=== PATIENT | female | born 1980 | race Caucasian/White ===

== ENCOUNTER 2016-08-24 09:21 | Emergency (ER) | payer BC ==
[~2016-08-24] VITALS: Ht 182.9 cm; Wt 120.2 kg
[2016-08-24 09:23] VITALS: BP 131/63
--- NOTE | 2016-08-24 09:41 | PHYS DOC ---
Past Medical History Past Medical History: Other Additional Past Medical Histor: BACK PAIN, headaches Past Surgical History: , Other Additional Past Surgical Histo: DISCECTOMY AT AGE 25 Alcohol Use: None Drug Use: None Adult General Chief Complaint Chief Complaint: FOOT INJURY PAIN [facility] HPI Patient is a 36 year old female presents emergency department stating that she' s had back surgery in the past in which she has numbness and tingling in her feet. Patient states approximately one week ago she believes that she stepped on something in her left foot. She states that she believes there is still foreign body left in the foot area. She states she has increased pain and discomfort when she is ambulating. She states she does take tramadol in which is helped some of the pain although she still continues to have pain when she ambulates. Patient states that she normally has tingling in her feet. Patient is able to move the toes. Full range of motion of the ankle. Review of Systems Review of Systems Constitutional: Denies fever or chills [] Eyes: Denies change in visual acuity, redness, or eye pain [] HENT: Denies nasal congestion or sore throat [] Respiratory: Denies cough or shortness of breath [] Cardiovascular: No additional information not addressed in HPI [] GI: Denies abdominal pain, nausea, vomiting, bloody stools or diarrhea [] : Denies dysuria or hematuria [] Musculoskeletal: Denies back pain or joint pain [] Integument: Denies rash or skin lesions questionable foreign body in the left foot. The heel area Neurologic: Denies headache, focal weakness or sensory changes [] Endocrine: Denies polyuria or polydipsia [] Allergies Allergies Allergies Coded Allergies Type Severity Reaction Last Updated Verified No Known Drug Allergies 08/18/14 No Physical Exam Physical Exam Constitutional: Well developed, well nourished, no acute distress, non-toxic appearance. [] HENT: Normocephalic, atraumatic, bilateral external ears normal, oropharynx moist, no oral exudates, nose normal. [] Eyes: PERRLA, EOMI, conjunctiva normal, no discharge. [] Neck: Normal range of motion, no tenderness, supple, no stridor. [] Cardiovascular:Heart rate regular rhythm Lungs & Thorax: No respiratory distress noted Skin: Warm, dry, no erythema, no rash. Left heel area has a spot that appears to be black in which patient states is tender. The area does not appear to have anything sharp or anything protruding from the site. No redness warmth tenderness or any drainage coming from the site. Back: No tenderness, no CVA tenderness. [] Extremities: No tenderness, no cyanosis, no clubbing, ROM intact, no edema. [] Neurologic: Alert and oriented X 3, normal motor function, normal sensory function, no focal deficits noted. [] Psychologic: Affect normal, judgement normal, mood normal. [] Current Patient Data Vital Signs Vital Signs Date Time Temp Pulse Resp B/P (MAP) Pulse Ox O2 Delivery O2 Flow Rate FiO2 08/24/16 09:23 97.9 78 16 96 Room Air 97.9 EKG EKG [] Radiology/Procedures Radiology/Procedures [] Course & Med Decision Making Course & Med Decision Making Pertinent Labs and Imaging studies reviewed. (See chart for details) X-rays were positive for foreign body noted into the heel area per Dr Loja. However the area did appear to be slightly deep. Spoke with Dr. Loja in regards to setting this patient to podiatry he is in agreement's with the patient should follow-up with mat roller for evaluation and possible removal of foreign body. Patient was provided with this information. She is also recommended to obtain the corn type adhesive that you can placed over the area to condition around the foreign object. Patient was encouraged to use Tylenol or ibuprofen for pain and discomfort she does have a prescription of tramadol in which she may also take. Patient will be discharged home in stable condition signs symptoms to return back to the emergency department as been provided. Patient agrees with discharge instructions treatment regimens and follow-up recommendations. [] Dragon Disclaimer Dragon Disclaimer This electronic medical record was generated, in whole or in part, using a voice recognition dictation system. Departure Departure Impression: Primary Impression: Foreign body (FB) in soft tissue Disposition: 01 HOME, SELF-CARE Condition: STABLE Referrals: HAILE STOVER MD (PCP) LISBET COWART DPM, RADMILA DPM Patient Instructions: Foreign Body-Brief Additional Instructions: As you were informed to foreign body was noted to be in the heel area. You may obtain: Patient's that you may place over the area to help with decreasing the pain and discomfort when walking. Continue with her tramadol at home in which you have for pain and discomfort. It is advisable since you have neuropathy in your feet that you wear socks or shoes at all times. This would help prevent foreign body in the soft tissue area of your feet Follow-up with podiatry for evaluation to have the foreign body removed. Return back to emergency prior signs symptoms of become worse. ANDRE JACOBS APRN Aug 24, 2016 09:41
--- NOTE | 2016-08-24 10:28 | RAD ---
Examination: 3 views of the left foot History: History of stepped on something one week back now has pain. Comparison: None available Findings: The alignment of the tarsal bones grossly appears unremarkable. The alignment of the tarsal metatarsal joints, tarsophalangeal joints, interphalangeal grossly appears unremarkable. No acute fracture identified. There is a tiny speck of radiodensity identified in the plantar aspect of the hindfoot inferior to the calcaneus. Impression: 1. Tiny speck of radiodensity identified in the plantar aspect of the hindfoot inferior to the calcaneus, best seen on the lateral and oblique views could be a small foreign body. Correlate clinically.
== END 2016-08-24 10:14 | disposition home or self-care (01) ==
LOC: ER 09:21
DX: S90.852A Superficial foreign body, left foot, initial encounter (principal); W45.8XXA Other foreign body or object entering through skin, initial encounter; Y93.89 Activity, other specified; Y92.89 Other specified places as the place of occurrence of the external cause; Y99.8 Other external cause status
CPT/HCPCS: 73630; 99284

== ENCOUNTER 2017-11-15 20:49 | Emergency (ER) | payer BC ==
[~2017-11-15] VITALS: Ht 182.9 cm; Wt 113.4 kg
[2017-11-15 20:49] VITALS: BP 123/75
[2017-11-15] MEDS ORDERED: HYDR-2758 PO (22:11)
[2017-11-15] MEDS ORDERED: NAPR-514 PO (22:11)
--- NOTE | 2017-11-15 22:12 | PHYS DOC ---
Past Medical History Past Medical History: Depression, GERD, Other Additional Past Medical Histor: BACK PAIN, headaches Past Surgical History: , Other Additional Past Surgical Histo: DISCECTOMY AT AGE 25 Alcohol Use: None Drug Use: None Adult General Chief Complaint Chief Complaint: FOOT INJURY PAIN HPI HPI Patient is a 37 year old Female who presents to the emergency department today with complaints of right foot pain since 3 o'clock this morning. She describes the pain as sharp, shooting pain to the arch of her right foot. She denies any new injury. She reports a history of neuropathy in her foot after back surgery several years ago. She does not take anything for all management of her neuropathy. She reprots taking tramadol at home with no relief of her symptoms. Currently she reports the pain is a 10 out of 10 on the pain scale. The pain is exacerbated with weight bearing and movement. Review of Systems Review of Systems Constitutional: Denies fever or chills [] Musculoskeletal: Denies back pain, reports pain in R foot with no known injury, denies any swelling or erythema of foot Integument: Denies rash or skin lesions [] Neurologic: Denies focal weakness or sensory changes [] All other systems were reviewed and found to be within normal limits, except as documented in this note. Current Medications Current Medications Current Medications Medications (Trade) Dose Ordered Sig/[facility] Start Time Stop Time Status Last Admin Dose Admin Acetaminophen/ Hydrocodone Bitart (Lortab 5/325) 1 tab 1X ONCE 11/15/17 22:30 11/15/17 22:30 DC 11/15/17 22:06 1 TAB Naproxen (Naprosyn) 500 mg 1X ONCE 11/15/17 22:30 11/15/17 22:30 DC 11/15/17 22:06 500 MG Allergies Allergies Allergies Coded Allergies Type Severity Reaction Last Updated Verified No Known Drug Allergies 08/18/14 No Physical Exam Physical Exam Constitutional: Well developed, well nourished, no acute distress, non-toxic appearance, obese. [] HENT: Normocephalic, atraumatic, bilateral external ears normal, nose normal. [] Eyes: conjunctiva normal, no discharge. [] Skin: Warm, dry, no erythema, no rash. [] Extremities: No cyanosis, no clubbing, ROM intact, no edema; no edema, erythema , or bruising noted to R foot, R foot posterior tibial and pedal pulses 2+] Neurologic: Alert and oriented X 3, normal motor function, normal sensory function, no focal deficits noted. [] Psychologic: Affect normal, judgement normal, mood normal. [] Current Patient Data Vital Signs Vital Signs Date Time Temp Pulse Resp B/P (MAP) Pulse Ox O2 Delivery O2 Flow Rate FiO2 11/15/17 22:06 Room Air 11/15/17 20:49 97.7 76 16 123/75 (91) 98 97.7 EKG EKG [] Radiology/Procedures Radiology/Procedures [] Course & Med Decision Making Course & Med Decision Making Pertinent Labs and Imaging studies reviewed. (See chart for details) Dx R foot pain, neuropathy No x-ray ordered as there was no injury or deformity. Physical exam not concerning for fracture, or infection. Pt was given one 500 mg naproxen and one hydrocodone 5/325 mg tablet in the department for pain relief. Rx for naproxen and hydrocodone written. PT was advised to follow up with PCP for further management of her chronic neuropathy and pain. Pt verbalized an understanding of discharge, medications, follow-up, home care, and return to ED precautions. Pt was in agreement with POC. Staff Physician Addendum: I was working in the ER during the course of this patient's visit. I was available for consultation as needed, but I was not directly involved in the care of this patient. [] Dragon Disclaimer Dragon Disclaimer This electronic medical record was generated, in whole or in part, using a voice recognition dictation system. Departure Departure Impression: Primary Impression: Neuropathy Additional Impression: Foot pain, right Disposition: 01 HOME, SELF-CARE Condition: STABLE Referrals: UNKNOWN PCP NAME (PCP) Patient Instructions: Pain, Neuropathic-Brief Additional Instructions: FILL PRESCRIPTIONS AND USE DIRECTED. FOLLOW UP WITH YOUR PCP FOR FURTHER MANAGEMENT OF YOUR CHRONIC NEUROPATHY. RECOMMEND APPLICATION OF ICE NEEDED FOR RELIEF OF PAIN. Scripts Hydrocodone Bit/Acetaminophen (HYDROCODONE-APAP 5-325 ) 1 Each Tablet 1 TAB PO PRN Q6HRS PRN for PAIN for 3 Days, #12 TAB 0 Refills Prov: TRINA THORPE APRN 11/15/17 Naproxen (NAPROXEN) 500 Mg Tablet 500 MG PO BID for 10 Days, #20 TAB 0 Refills Prov: TRINA THORPE APRN 11/15/17 Problem Qualifiers TRINA THORPE APRN Nov 15, 2017 22:12 ANNIE LEYVA MD Nov 18, 2017 06:15
[2017-11-15] MEDS ORDERED: NAPROXEN 500 MG TABLET PO ONE (22:30)
[2017-11-15] MEDS ORDERED: HYDROcodone/APAP 5/325MG 1 TAB TABLET PO ONE (22:30)
== END 2017-11-15 22:30 | disposition home or self-care (01) ==
LOC: ER 20:49
DX: G62.89 Other specified polyneuropathies (principal); M79.671 Pain in right foot; F32.9 Major depressive disorder, single episode, unspecified; K21.9 Gastro-esophageal reflux disease without esophagitis; Z98.890 Other specified postprocedural states
CPT/HCPCS: 99283

== ENCOUNTER 2018-09-28 06:23 | Emergency (ER) | payer BC ==
[~2018-09-28] VITALS: Ht 182.9 cm; Wt 113.4 kg
[~2018-09-28 06:23] MED LIST: HYDR-2761 PO; NAPR-514 PO
[2018-09-28] MEDS ORDERED: IV NORMAL SALINE 1000ML BAG 1,000 ML IV ONE (06:45)
[2018-09-28] MEDS ORDERED: MORPHINE SULFATE 4 MG/ML VIAL. IV ONE (06:45)
[2018-09-28] MEDS ORDERED: PROCHLORPERAZINE 10 MG/2 ML VIAL. IV ONE (06:45)
[2018-09-28] MEDS ORDERED: IV NORMAL SALINE 1000ML BAG 1,000 ML IV SCH (06:45)
--- NOTE | 2018-09-28 06:46 | PHYS DOC ---
Past Medical History Past Medical History: Depression, GERD, Other Additional Past Medical Histor: BACK PAIN, headaches Past Surgical History: , Other Additional Past Surgical Histo: DISCECTOMY AT AGE 25 Alcohol Use: None Drug Use: None Adult General Chief Complaint Chief Complaint: NAUSEA/VOMITING/[facility] HPI HPI patient is a pleasant 38-year-old female who presents to the emergency department for evaluation. 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 She states she began eating secondary around 1 PM, experiencing vomiting, and generalized fatigue and weakness. She went home, did not eat dinner, and went to bed. She woke up at about 4 AM, with a worsening severe headache, as well as recurrent vomiting again. She has not had any diarrhea or abdominal pain, other than her nausea. She states that she has headaches every day, but this headache seems somewhat worse than her typical headache. She has not had any vision changes, numbness, or weakness. She has not had any fevers or chills. She does have a history of chronic back pain. She had been on tramadol, under the care of a pain management physician, but due to insurance issues, has not been able to see her pain management physician. The patient's significant other has been obtaining either hydrocodone or oxycodone for the patient to use for pain, as he states "somebody needs to do something to help her". She states she last had some pain medication about 2 days ago. She does not use it every day, but does use some most days, usually only one or 2 times per day. Review of Systems Review of Systems Constitutional: Denies fever or chills [] Eyes: Denies change in visual acuity, redness, or eye pain [] HENT: Denies nasal congestion or sore throat [] Respiratory: Denies cough or shortness of breath [] Cardiovascular: The patient denies any shortness of breath, chest pain, palpitations, or orthopnea [] GI: Denies abdominal pain, E emesis, bloody stools or diarrhea [] : Denies dysuria or hematuria [] Musculoskeletal: Denies back pain or joint pain [] Integument: Denies rash or skin lesions [] Neurologic: Denies focal weakness or sensory changes [] Endocrine: Denies polyuria or polydipsia [] All other systems were reviewed and found to be within normal limits, except as documented in this note. Current Medications Current Medications Current Medications Medications (Trade) Dose Ordered Sig/[facility] Start Time Stop Time Status Last Admin Dose Admin Morphine Sulfate (Morphine Sulfate) 4 mg 1X ONCE 09/28/18 06:45 09/28/18 06:47 DC 09/28/18 07:10 4 MG Prochlorperazine Edisylate (Compazine) 10 mg 1X ONCE 09/28/18 06:45 09/28/18 06:47 DC 09/28/18 07:10 10 MG Sodium Chloride 1,000 ml @ 1,000 mls/hr 1X ONCE 09/28/18 06:45 09/28/18 07:44 DC 09/28/18 07:10 1,000 MLS/HR Allergies Allergies Allergies Coded Allergies Type Severity Reaction Last Updated Verified No Known Drug Allergies 08/18/14 No Physical Exam Physical Exam PHYSICAL EXAM: CONSTITUTIONAL: Well developed, well nourished HEAD: normocephalic, atraumatic EENT: PERRL, EOMI. Conjunctivae normal color, sclerae non-icteric; moist mucous membranes. NECK: Supple, non-tender; no meningismus. LUNGS: Lungs CTA, breathing even and unlabored. Normal air movement. HEART: Regular rate and rhythm, no murmur CHEST: No deformity; non-tender ABDOMEN: The abdomen is soft, and non-tender, no masses or bruits. EXTREM: Normal ROM; no deformity, no calf tenderness. Normal pulses palpable in all extremities. There is no pedal edema. SKIN: No rash; no diaphoresis NEURO: Alert; normal speech and cognition; CN's grossly intact; strength grossly intact without focal deficit. BACK: No CVA TTP. Current Patient Data Vital Signs Vital Signs Date Time Temp Pulse Resp B/P (MAP) Pulse Ox O2 Delivery O2 Flow Rate FiO2 09/28/18 06:25 97.7 73 19 169/88 (115) 98 Room Air 97.7 Lab Values Laboratory Tests Test 09/28/18 06:40 09/28/18 07:13 09/28/18 07:20 White Blood Count 16.5 x10^3/uL (4.0-11.0) H Red Blood Count 5.01 x10^6/uL (3.50-5.40) Hemoglobin 10.5 g/dL (12.0-15.5) L Hematocrit 34.1 % (36.0-47.0) L Mean Corpuscular Volume 68 fL (79-100) L Mean Corpuscular Hemoglobin 21 pg (25-35) L Mean Corpuscular Hemoglobin Concent 31 g/dL (31-37) Red Cell Distribution Width 18.2 % (11.5-14.5) H Platelet Count 596 x10^3/uL (140-400) H Neutrophils (%) (Auto) 77 % (31-73) H Lymphocytes (%) (Auto) 16 % (24-48) L Monocytes (%) (Auto) 6 % (0-9) Eosinophils (%) (Auto) 1 % (0-3) Basophils (%) (Auto) 0 % (0-3) Neutrophils # (Auto) 12.8 x10^3/uL (1.8-7.7) H Lymphocytes # (Auto) 2.6 x10^3/uL (1.0-4.8) Monocytes # (Auto) 0.9 x10^3/uL (0.0-1.1) Eosinophils # (Auto) 0.1 x10^3/uL (0.0-0.7) Basophils # (Auto) 0.1 x10^3/uL (0.0-0.2) Segmented Neutrophils % 87 % (35-66) H Band Neutrophils % 1 % (0-9) Lymphocytes % 8 % (24-48) L Monocytes % 3 % (0-10) Basophils % 1 % (0-3) Platelet Estimate Increased (ADEQUATE) Anisocytosis Mod Sodium Level 142 mmol/L (136-145) Potassium Level 3.7 mmol/L (3.5-5.1) Chloride Level 106 mmol/L (98-107) Carbon Dioxide Level 22 mmol/L (21-32) Anion Gap 14 (6-14) Blood Urea Nitrogen 9 mg/dL (7-20) Creatinine 0.7 mg/dL (0.6-1.0) Estimated GFR (Cockcroft-Gault) 94.2 BUN/Creatinine Ratio 13 (6-20) Glucose Level 124 mg/dL (70-99) H Calcium Level 9.4 mg/dL (8.5-10.1) Total Bilirubin 0.5 mg/dL (0.2-1.0) Aspartate Amino Transferase (AST) 20 U/L (15-37) Alanine Aminotransferase (ALT) 24 U/L (14-59) Alkaline Phosphatase 127 U/L (46-116) H Total Protein 8.5 g/dL (6.4-8.2) H Albumin 4.3 g/dL (3.4-5.0) Albumin/Globulin Ratio 1.0 (1.0-1.7) Lipase 103 U/L (73-393) POC Urine HCG, Qualitative Hcg negative (Negative) Urine Collection Type Void Urine Color Yellow Urine Clarity Cloudy Urine pH 6.0 Urine Specific Tennyson 1.025 Urine Protein 30 mg/dL (NEG-TRACE) Urine Glucose (UA) Negative mg/dL (NEG) Urine Ketones (Stick) Negative mg/dL (NEG) Urine Blood Negative (NEG) Urine Nitrite Negative (NEG) Urine Bilirubin Negative (NEG) Urine Urobilinogen Dipstick 0.2 mg/dL (0.2 mg/dL) Urine Leukocyte Esterase Small (NEG) Urine RBC 1-2 /HPF (0-2) Urine WBC 11-20 /HPF (0-4) Urine Squamous Epithelial Cells Many /LPF Urine Bacteria Many /HPF (0-FEW) Laboratory Tests 09/28/18 06:40 Laboratory Tests 09/28/18 06:40 EKG EKG [] Radiology/Procedures Radiology/Procedures [PROCEDURE: CT HEAD WO CONTRAST EXAM: CT Head without IV contrast CLINICAL HISTORY: Headache COMPARISON: None. TECHNIQUE: Routine CT of the head without contrast. Soft tissues and bone windows were reviewed. PQRS compliance statement - One or more of the following individualized dose reduction techniques were utilized for this study: 1. Automated exposure control 2. Adjustment of the mA and/or kV according to patient size 3. Use of iterative reconstruction technique FINDINGS: There is no evidence of hemorrhage, mass or extra-axial fluid collection. Pelayo-white differentiation is maintained with no evidence of edema. There is no mass effect or shift of the intracranial structures. The ventricles, basilar cisterns and cortical sulci are normal in size and configuration for the patients stated age. The cerebellum and brainstem are unremarkable. The calvarium demonstrates no evidence of fracture or focal lesion. There is normal aeration of the visualized paranasal sinuses and mastoid air cells. The visualized portions of the orbits are normal. IMPRESSION: 1. No evidence for acute intracranial process.] Course & Med Decision Making Course & Med Decision Making Pertinent Labs and Imaging studies reviewed. (See chart for details) []8:20 AM: The patient's condition remains stable, she is feeling significantly better after IV fluids and medication at this time. Her headache has nearly resolved. Her urinalysis likely represents a contaminated specimen, not an infection. I discussed doing a lumbar puncture with the patient. We discussed the limitations of CT in definitively ruling out subarachnoid hemorrhage, or ruling out meningitis, I discussed the potential life-threatening nature of these diagnoses. The patient expressed verbal understanding of the risks involved in potentially missing these diagnoses. After considering the risks/benefits of lumbar puncture, and answering all questions about the procedure, the patient declined to undergo a lumbar puncture. The patient was mentally competent, and all questions were addressed. I stressed the need to return to the emergency department for worsening symptoms, or if the patient is willing to undergo further evaluation. The patient expressed verbal understanding. She would like to go home at this point, with expectant management. Return precautions for worsening symptoms were especially discussed with the patient and her significant other. Overall clinical suspicion for meningitis or other serious cause of acute headache is fairly low, but the patient understands that this cannot be definitively excluded without further evaluation. Dragon Disclaimer Dragon Disclaimer This electronic medical record was generated, in whole or in part, using a voice recognition dictation system. Departure Departure Impression: Primary Impression: Headache Additional Impressions: Nausea & vomiting Heat exposure Disposition: 01 HOME, SELF-CARE Condition: STABLE Referrals: UNKNOWN PCP NAME (PCP) Patient Instructions: General Headache Without Cause, Heat-Related Illness, Nausea and Vomiting Scripts Ondansetron Hcl (ZOFRAN) 4 Mg Tablet 1 TAB PO Q6HRS PRN for NAUSEA/VOMITING, #20 TAB Prov: JANICE ESPARZA MD 09/28/18 Problem Qualifiers JANICE ESPARZA MD Sep 28, 2018 06:46
[2018-09-28 07:10] LABS: BASO # 0.1 x10^3/uL (0.0-0.2); BASO % 0 % (0-3); EOS # 0.1 x10^3/uL (0.0-0.7); EOS % 1 % (0-3); HEMATOCRIT 34.1 % (36.0-47.0); HEMOGLOBIN 10.5 g/dL (12.0-15.5); LYMPH # 2.6 x10^3/uL (1.0-4.8); LYMPH % 16 % (24-48); MEAN CORPUSCULAR HEMOGLOBIN 21 pg (25-35); MEAN CORPUSCULAR HGB CONC 31 g/dL (31-37); MEAN CORPUSCULAR VOLUME 68 fL (79-100); MONO # 0.9 x10^3/uL (0.0-1.1); MONO % 6 % (0-9); NEUT # 12.8 x10^3/uL (1.8-7.7); NEUT % 77 % (31-73); PLATELET COUNT 596 x10^3/uL (140-400); RED BLOOD COUNT 5.01 x10^6/uL (3.50-5.40); RED CELL DISTRIBUTION WIDTH 18.2 % (11.5-14.5); WHITE BLOOD COUNT 16.5 x10^3/uL (4.0-11.0)
[2018-09-28 07:21] LABS: CALCIUM 9.4 mg/dL (8.5-10.1); CREATININE 0.7 mg/dL (0.6-1.0); GFR 94.2; POTASSIUM 3.7 mmol/L (3.5-5.1)
[2018-09-28 07:26] LABS: ALBUMIN 4.3 g/dL (3.4-5.0); TOTAL BILIRUBIN 0.5 mg/dL (0.2-1.0); TOTAL PROTEIN 8.5 g/dL (6.4-8.2)
[2018-09-28 07:27] VITALS: BP 154/80
[2018-09-28 07:28] LABS: BILIRUBIN,URINE NEGATIVE (NEG); CLARITY,URINE CLOUDY; COLOR,URINE YELLOW; NITRITE,URINE NEGATIVE (NEG); PROTEIN,URINE 30 mg/dL (NEG-TRACE); UROBILINOGEN,URINE 0.2 mg/dL (0.2 mg/dL)
[2018-09-28 07:36] LABS: BACTERIA,URINE MANY /HPF (0-FEW); SQUAMOUS EPITHELIAL CELL,UR MANY /LPF
--- NOTE | 2018-09-28 07:50 | RAD ---
EXAM: CT Head without IV contrast CLINICAL HISTORY: Headache COMPARISON: None. TECHNIQUE: Routine CT of the head without contrast. Soft tissues and bone windows were reviewed. PQRS compliance statement - One or more of the following individualized dose reduction techniques were utilized for this study: 1. Automated exposure control 2. Adjustment of the mA and/or kV according to patient size 3. Use of iterative reconstruction technique FINDINGS: There is no evidence of hemorrhage, mass or extra-axial fluid collection. Pelayo-white differentiation is maintained with no evidence of edema. There is no mass effect or shift of the intracranial structures. The ventricles, basilar cisterns and cortical sulci are normal in size and configuration for the patients stated age. The cerebellum and brainstem are unremarkable. The calvarium demonstrates no evidence of fracture or focal lesion. There is normal aeration of the visualized paranasal sinuses and mastoid air cells. The visualized portions of the orbits are normal. IMPRESSION: 1. No evidence for acute intracranial process. Electronically signed by: Eliezer Alatorre MD (09/28/2018 7:47 AM) [facility]
[2018-09-28 08:14] LABS: % BANDS 1 % (0-9); % BASOS 1 % (0-3); % LYMPHS 8 % (24-48); % MONOS 3 % (0-10); % SEGS 87 % (35-66); ANISOCYTOSIS MOD; PLT ESTIMATE INCREASED (ADEQUATE)
[2018-09-28] MEDS ORDERED: ONDA4TAB7 PO (08:26)
== END 2018-09-28 09:02 | disposition home or self-care (01) ==
LOC: ER 06:23
DX: T67.3XXA Heat exhaustion, anhydrotic, initial encounter (principal); R51 Headache; R11.2 Nausea with vomiting, unspecified; G89.29 Other chronic pain; K21.9 Gastro-esophageal reflux disease without esophagitis; F32.9 Major depressive disorder, single episode, unspecified; Z98.890 Other specified postprocedural states
CPT/HCPCS: 36415; 70450; 80053; 81001; 81025; 83690; 85007; 85025; 87086; 96361; 96374; 96375; 99285; J0780; J2270; J7030